=== PATIENT | female | born 1985 | race African-American/Black ===

== ENCOUNTER 2017-10-28 22:34 | Emergency (ER) | payer SELFPAY | END 2017-10-28 23:00 | disposition home or self-care (01) | LOC: SCSER 22:34 | DX: S00.83XA Contusion of other part of head, initial encounter (principal); B20 Human immunodeficiency virus [HIV] disease; X58.XXXA Exposure to other specified factors, initial encounter | CPT/HCPCS: 99284 ==

== ENCOUNTER 2018-04-26 22:00 | Emergency (ER) | payer SELFPAY | END 2018-04-26 22:30 | disposition home or self-care (01) | LOC: SCSER 22:00 | DX: R51 Headache (principal); B20 Human immunodeficiency virus [HIV] disease | CPT/HCPCS: 99283 ==

== ENCOUNTER 2018-08-04 21:05 | Emergency (ER) | payer SELFPAY ==
[2018-08-04 21:46] LABS: Pregnancy Test - Urine (BHCG) Negative (Negative); Pregu Control Background? CLEAR/WHITE (CLR/WHITE); Pregu Control Bar Appear? YES (CONTROL BAR); Specific Gravity 1.031 (1.002-1.036)
== END 2018-08-04 21:52 | disposition left against medical advice (07) ==
LOC: SCSER 21:05
DX: R51 Headache (principal); B20 Human immunodeficiency virus [HIV] disease
CPT/HCPCS: 81025; 99284

== ENCOUNTER 2018-08-05 21:06 | Emergency (ER) | payer SELFPAY ==
[2018-08-05] MEDS ORDERED: Oxymetazoline HCl 0.05% ( 15 ML ) ONE (22:14)
[2018-08-05] MEDS ORDERED: Prochlorperazine 10 MG/2 ML VIAL ONE (22:35)
[2018-08-05] MEDS ORDERED: diphenhydrAMINE 50 MG/ML VIAL ONE (22:35)
[2018-08-05] MEDS ORDERED: Ketorolac Tromethamine 30 MG/ML VIAL ONE (22:35)
== END 2018-08-05 23:50 | disposition home or self-care (01) ==
LOC: SCSER 21:06
DX: G43.909 Migraine, unspecified, not intractable, without status migrainosus (principal); B20 Human immunodeficiency virus [HIV] disease
CPT/HCPCS: 96365; 96375; J0780; J1200; J1885

== ENCOUNTER 2018-11-26 18:22 | Emergency (ER) | payer SELFPAY ==
[2018-11-26] MEDS ORDERED: Acetaminophen 500 MG TAB ONE (20:01)
[2018-11-26 20:33] LABS: Pregnancy Test - Urine (BHCG) Negative (Negative)
[2018-11-26 20:34] LABS: Pregu Control Background? CLEAR/WHITE (CLR/WHITE); Pregu Control Bar Appear? YES (CONTROL BAR)
== END 2018-11-26 21:09 | disposition home or self-care (01) ==
LOC: ERS 18:22
DX: R51 Headache (principal); R10.9 Unspecified abdominal pain; V43.52XA Car driver injured in collision with other type car in traffic accident, initial encounter
CPT/HCPCS: 81025; 99284

== ENCOUNTER 2019-04-02 23:51 | Emergency (ER) | payer OTHER, SELFPAY ==
[2019-04-03] MEDS ORDERED: Ibuprofen 800 MG TAB ONE (00:02)
== END 2019-04-03 00:07 | disposition home or self-care (01) ==
LOC: SCSER 23:51
DX: K02.9 Dental caries, unspecified (principal)
CPT/HCPCS: 99282

== ENCOUNTER 2019-04-07 10:39 | Emergency (ER) | payer SELFPAY ==
[2019-04-07] MEDS ORDERED: Ondansetron ODT 4 MG TAB ONE (10:51)
[2019-04-07] MEDS ORDERED: Ketorolac Tromethamine 30 MG/ML VIAL ONE (11:23)
== END 2019-04-07 12:14 | disposition home or self-care (01) ==
LOC: ERS 10:39
DX: K08.89 Other specified disorders of teeth and supporting structures (principal); R11.10 Vomiting, unspecified
CPT/HCPCS: J1885; Q0162

== ENCOUNTER 2019-04-30 05:14 | Emergency (ER) | payer SELFPAY ==
[2019-04-30] MEDS ORDERED: Ketorolac Tromethamine 60 MG/2 ML VIAL ONE (05:25)
== END 2019-04-30 05:46 | disposition home or self-care (01) ==
LOC: SCSER 05:14
DX: K02.9 Dental caries, unspecified (principal)
CPT/HCPCS: 96372; 99282; J1885

== ENCOUNTER 2019-05-15 22:42 | Emergency (ER) | payer SELFPAY ==
[2019-05-15] MEDS ORDERED: Ketorolac Tromethamine 60 MG/2 ML VIAL ONE (23:53)
[2019-05-15] MEDS ORDERED: Clindamycin 150 MG CAP ONE (23:53)
== END 2019-05-16 00:11 | disposition home or self-care (01) ==
LOC: SCSER 22:42
DX: K05.10 Chronic gingivitis, plaque induced (principal); K03.2 Erosion of teeth; K02.9 Dental caries, unspecified
CPT/HCPCS: 96372; 99282; J1885

== ENCOUNTER 2019-05-16 22:46 | Emergency (ER) | payer SELFPAY ==
[2019-05-16] MEDS ORDERED: Lidocaine Viscous Sol 2% 15 ml UD Cup ONE (23:07)
[2019-05-16] MEDS ORDERED: Ketorolac Tromethamine 30 MG/ML VIAL ONE (23:07)
[2019-05-16] MEDS ORDERED: Bupivacaine 0.5% 10 ML VIAL ONE (23:12)
== END 2019-05-16 23:29 | disposition home or self-care (01) ==
LOC: SCSER 22:46
DX: M27.3 Alveolitis of jaws (principal); Z79.2 Long term (current) use of antibiotics
CPT/HCPCS: 96372; 99283; J1885; J3490

== ENCOUNTER 2019-05-18 07:01 | Emergency (ER) | payer SELFPAY | END 2019-05-18 08:35 | disposition home or self-care (01) | LOC: ERS 07:01 | DX: K08.89 Other specified disorders of teeth and supporting structures (principal) | CPT/HCPCS: 99281 ==

== ENCOUNTER 2019-09-12 11:52 | Emergency (ER) | payer SELFPAY | END 2019-09-12 12:42 | disposition home or self-care (01) | LOC: SCSER 11:52 | DX: R09.89 Other specified symptoms and signs involving the circulatory and respiratory systems (principal) | CPT/HCPCS: 87081; 87430; 99283 ==